=== PATIENT | female | born 1965 | race Two or more races ===

== ENCOUNTER 2024-07-21 09:14 | Emergency (ER) | payer MEDICAID, OTHER ==
[~2024-07-21] VITALS: Ht 157.5 cm; Wt 81.6 kg
[2024-07-21 09:49] VITALS: BP 130/73; PULSE 76; RESP 18; TEMP 97.4; O2SAT 98
[2024-07-21 11:00] LABS: Basophils # (auto) 0 10 ^3/uL (0-0.2); Eosinophils # (auto) 0.2 10 ^3/uL (0-0.8); Eosinophils % (auto) 5.3 % (0.0-7.0); Hematocrit 35.2 % (36.0-46.0); Hemoglobin 11.7 g/dL (12.2-16.2); Lymphocytes # (auto) 0.9 10 ^3/uL (0.4-5.4); Lymphocytes % (auto) 22.9 % (10.0-50.0); Mean Corpuscular Hemoglobin 28.1 pg (28.0-32.0); Mean Corpuscular Hgb Conc. 33.3 g/dL (32.0-36.0); Mean Corpuscular Volume 84.2 fL (80.0-100.0); Monocytes # (auto) 0.3 10 ^3/uL (0-1.3); Monocytes % (auto) 8.3 % (0.0-12.0); Neutrophils # (auto) 2.4 10 ^3/uL (1.6-8.6); Neutrophils % (auto) 62.5 % (37.0-80.0); Nucleated Red Blood Cells % 0.1 %; Platelet Count (auto) 325 10^3/uL (140-450); Red Blood Cells 4.19 10^6/uL (4.0-5.20); White Blood Cell 3.8 10^3/uL (4.4-10.8)
[2024-07-21] MEDS ORDERED: TRAM50TA2 PO (11:10)
[2024-07-21] MEDS ORDERED: LIDO5DIS21 TOP (11:10)
== END 2024-07-21 11:11 | disposition home or self-care (01) ==
LOC: EDBD 09:14 → ER 09:14
DX: M25.562 Pain in left knee (principal); Z86.12 Personal history of poliomyelitis
CPT/HCPCS: 36415; 73590; 85025